=== PATIENT | male | born 1975 | race Caucasian/White ===

== ENCOUNTER → 2021-06-04 00:38 | Outpatient (CLI) | payer BC, SELFPAY ==
[2021-06-04 22:45] LABS: SARS-CoV-2 RNA PCR Negative
== END ==
PROVIDERS: PCP Family Medicine; Visit Provider Internal Medicine Gastroenterology
DX: Z01.812 Encounter for preprocedural laboratory examination (principal); Z20.822 Contact with and (suspected) exposure to COVID-19
CPT/HCPCS: C9803; U0003; U0005

== ENCOUNTER 2021-06-08 00:17 | Day surgery (SDC) | payer BC, SELFPAY ==
[2021-05-25 14:08] VITALS: BMI 28.4
[2021-06-08 06:24] VITALS: BP 134/77; PULSE 72; RESP 20; TEMP 36.3; O2SAT 100
[2021-06-08] MEDS: LACTATED RINGERS 1,000 ML 150 ML IV CONT (06:40)
[2021-06-08 06:41] VITALS: BMI 28.5
--- NOTE | 2021-06-08 07:05 | PM.HPGS ---
History of Present Illness History of Present Illness Consent: Risks, benefits, and alternatives have been discussed and questions answered. Patient agrees to proceed with procedure. Chief complaint: neoplasm screening Narrative: Enzo Thompson is a 46 year old male Referred for colon cancer screening. 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 Family History Family History Mother Patient's mother is in good health Father Patient's father is in good health Sibling Patient's sister is in good health Patient's brother is in good health Social History Social History Smoking packs per day: 1 Smoking cigarettes per day: 20.0 Years smoked: 15 Smoking pack-years: 15.00 Smoking status: Former smoker Tobacco type: cigarettes Second hand tobacco smoke exposure: No Alcohol intake: current Drinks per week: 1 Substance use: never Substance use type: does not use Living arrangements: with family Gender identity (if verbalized by the patient): Male Spiritual care concerns: No Meds Home Medications and Allergies Home Medications Medication Instructions Recorded Confirmed Type No Home Medications 05/25/21 06/08/21 History Allergies Allergy/AdvReac Type Severity Reaction Status Date / Time No Known Allergies Allergy Unknown Verified 06/08/21 06:23 Vital Signs Vital Signs - 24 hr 06/08/21 06:24 Temperature 36.3 C L Pulse Rate 72 Respiratory Rate 20 Blood Pressure 134/77 Pulse Oximetry 100 Exam Resp: Auscultation: clear to auscultation bilaterally Cardio: Rate: regular rate Rhythm: regular rhythm GI: GI Palp: Yes Soft to palpation and No Tenderness to palpation present (GI) Assessment and Plan Assessment and plan (1) Colon cancer screening: Code(s): Z12.11 - Encounter for screening for malignant neoplasm of colon Status: Acute
--- NOTE | 2021-06-08 07:08 | WPDANESEPPF ---
Anes - Initial Pre Proc Eval Procedure: Operation Date: 06/08/21 07:30 Proposed Procedures p Screening Colonoscopy - Ephraim Cotton MD Date/Time: 06/08/21 07:08 Surgeon: Ephraim Cotton MD Pre Op Diagnosis: neoplasm screening Patient Data Age: 46 Gender: M Height: 1.78 m Weight: 90.4 kg Last Vital Signs Temp 97.3 F L 06/08/21 06:24 Pulse 72 06/08/21 06:24 Resp 20 06/08/21 06:24 BP 134/77 06/08/21 06:24 Pulse Ox 100 06/08/21 06:24 Allergies Allergy/AdvReac Type Severity Reaction Status Date / Time No Known Allergies Allergy Unknown Verified 06/08/21 06:23 Home Medications Medication Instructions Recorded Confirmed Type No Home Medications 05/25/21 06/08/21 History Patient hx anesthesia problems: none Family hx anesthesia problems: none PMFSH Past Medical History Medical History Actinic keratoses 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 Family History Family History Mother Patient's mother is in good health Father Patient's father is in good health Sibling Patient's sister is in good health Patient's brother is in good health Social History Social History Smoking packs per day: 1 Smoking cigarettes per day: 20.0 Years smoked: 15 Smoking pack-years: 15.00 Smoking status: Former smoker Tobacco type: cigarettes Second hand tobacco smoke exposure: No Alcohol intake: current Drinks per week: 1 Substance use: never Substance use type: does not use Living arrangements: with family Gender identity (if verbalized by the patient): Male Spiritual care concerns: No Anes - Eval Final PreProcedure Day of Procedure 06/08/21 07:08 Patient weight: overweight Heart: regular rate and rhythm Lungs: clear to auscultation Airway: Mallampati scale class II Neurological: alert and oriented Last oral intake: >/= 8 hours ASA classification: II Emergent: no Anesthetic plan: proceed Anesthesia type and monitoring: general GIVS and standard monitoring Informed Consent: The patient's anesthetic plan and its attendant risks and benefits were discussed with the patient/family/POA. Questions were solicited and answers provided to the satisfaction of the patient/family/POA.
[2021-06-08 07:49] VITALS: BP 110/71; PULSE 69; RESP 15; O2SAT 100
[2021-06-08 07:59] VITALS: BP 112/79; PULSE 67; RESP 16; O2SAT 100
[2021-06-08 08:09] VITALS: BP 112/75; PULSE 66; RESP 21; O2SAT 100
== END 2021-06-08 08:31 | disposition home or self-care (01) ==
PROVIDERS: PCP Family Medicine; Visit Provider Internal Medicine Gastroenterology
PROC: 0DJD8ZZ Inspection of Lower Intestinal Tract, Via Natural or Artificial Opening Endoscopic (ICD-10-PCS; CPT 45378; principal; 2021-06-08 07:30)
DX: Z12.11 Encounter for screening for malignant neoplasm of colon (principal); D12.5 Benign neoplasm of sigmoid colon; K57.30 Diverticulosis of large intestine without perforation or abscess without bleeding; Z87.891 Personal history of nicotine dependence
CPT/HCPCS: 45385; 88305; J2704; J7120